=== PATIENT | female | born 1955 | race Caucasian/White ===

== ENCOUNTER 2016-11-18 15:26 | Emergency (ER) | payer BC, OTHER ==
[~2016-11-18] VITALS: Ht 160 cm; Wt 89.8 kg
[~2016-11-18 15:26] MED LIST: ADVI200C5 PO; ATOR20TA15 PO; DULO1CAP3 PO; ESZO1TAB PO; GABA100C4 PO; HYDR50TA15 PO; LANTINJ SQ; LORA-373 PO; LOSA100T2 PO; METF1000 PO; MULT1TAB84 PO; NEBI20 PO; SPIR50TA PO
[2016-11-18 15:27] VITALS: BP 135/86; PULSE 77; RESP 18; TEMP 97.7; O2SAT 99
[2016-11-18] MEDS ORDERED: KETOROLAC TROMETHAMINE 30 MG/ML (IVP) VIAL IV PUSH ONE (16:15)
[2016-11-18] MEDS ORDERED: ONDANSETRON HCL 4 MG/2 ML VIAL IV PUSH ONE (16:15)
--- NOTE | 2016-11-18 16:19 | PD ---
HPI Chief Complaint: Flank/Kidney Pain Time Seen by Provider: 16:07 Travel History International Travel<30 days: No Contact w/Intl Traveler<30days: No Traveled to known affect area: No History of Present Illness HPI 61yo F with PMH of fibromyalgia, nephrolithiasis, HTN, DM presents to the ED with c/o left flank pain that radiates toward the left groin for 3 days. States movement makes it better and sitting still makes it worst. Feels like her kidney stone pain. +Nausea. +Dysuria. Denies any fever, chest pain, sob, vomiting, hematuria. PFSH Past Medical History Hx Anticoagulant Therapy: Yes (ASPIRIN 325MG DAILY) Cardiac Catheterization: Yes Coronary Artery Disease: Yes Diabetes: Yes Patient Takes Glucophage: No Hypertension: Yes Myocardial Infarction: Yes Tetanus Vaccination: > 5 Years Influenza Vaccination: Yes ?: Not Past Surgical History Appendectomy: Yes Section: Yes (x2) Cholecystectomy: Yes Social History Alcohol Use: No Tobacco Use: No Substance Use: No Allergies-Medications (Allergen,Severity, Reaction): Coded Allergies: No Known Allergies (Unverified , 11/18/16) Reported Meds & Prescriptions Reported Meds & Active Scripts Active Ibuprofen 600 Mg Tab 600 Mg PO Q6H PRN Bactrim DS (Sulfamethoxazole-Trimethoprim) 800-160 Mg Tab 1 Tab PO BID Gabapentin 100 Mg Cap 100 Mg PO TID Bystolic (Nebivolol) 20 Mg Tab 20 Mg PO DAILY Hydralazine (Hydralazine HCl) 50 Mg Tab 50 Mg PO TID Take with a meal Losartan-Hydrochlorothiazide 100-25 Mg Tab 1 Tab PO DAILY Duloxetine DR (Duloxetine HCl) 60 Mg Capdr 60 Mg PO DAILY Spironolactone 50 Mg Tab 50 Mg PO DAILY Metformin (Metformin HCl) 1,000 Mg Tab 1,000 Mg PO BIDPC With meals Lantus Solostar Pen Inj (Insulin Glargine) 300 Unit/3 Ml Pen 5 Units SQ DAILY Lunesta (Eszopiclone) 2 Mg Tab 2 Mg PO HS PRN Atorvastatin (Atorvastatin Calcium) 20 Mg Tab 20 Mg PO HS Reported Multivitamin Adults (Multiple Vitamins W/ Minerals) 1 Tab 1 Tab PO DAILY Advil (Ibuprofen) 200 Mg Cap 200 Mg PO Q4H PRN Lorazepam 0.5 Mg Tab 0.5 Mg PO Q8H PRN Review of Systems Except as stated in HPI: all other systems reviewed are Neg Physical Exam Narrative GENERAL: 61yo F not in distress. SKIN: Warm and dry. HEAD: Atraumatic. Normocephalic. EYES: Pupils equal and round. No scleral icterus. No injection or drainage. ENT: No nasal bleeding or discharge. Mucous membranes pink and moist. NECK: Trachea midline. No JVD. CARDIOVASCULAR: Regular rate and rhythm. No murmur appreciated. RESPIRATORY: No accessory muscle use. Clear to auscultation. Breath sounds equal bilaterally. GASTROINTESTINAL: Abdomen soft, non-tender, nondistended. No rebound tenderness or guarding. BACK: No midline ttp thoracic or lumbar spine. +Left paraspinal ttp L3-L5. No CVA tenderness bilaterally. MUSCULOSKELETAL: No obvious deformities. No clubbing. No cyanosis. No edema. NEUROLOGICAL: Awake and alert. No obvious cranial nerve deficits. Motor grossly within normal limits. Normal speech. PSYCHIATRIC: Appropriate mood and affect; insight and judgment normal. Data Data Last Documented VS Vital Signs Date Time Temp Pulse Resp B/P Pulse Ox O2 Delivery O2 Flow Rate FiO2 11/18/16 17:20 16 11/18/16 17:09 76 114/74 93 Room Air 11/18/16 15:27 97.7 Orders Urinalysis - C+S If Indicated (11/18/16 16:01) Complete Blood Count With Diff (11/18/16 16:07) Comprehensive Metabolic Panel (11/18/16 16:07) Ct Abd/Pel W/O Iv Contrast (11/18/16 ) Ketorolac Inj (Toradol Inj) (11/18/16 16:15) Ondansetron Inj (Zofran Inj) (11/18/16 16:15) Urine Culture (11/18/16 16:45) Ceftriaxone Inj (Rocephin Inj) (11/18/16 18:00) Sodium Chlorid 0.9% 500 Ml Inj (Ns 500 M (11/18/16 18:00) Labs Laboratory Tests Test 11/18/16 11/18/16 16:15 16:45 White Blood Count 10.9 TH/MM3 Red Blood Count 4.82 MIL/MM3 Hemoglobin 14.1 GM/DL Hematocrit 42.7 % Mean Corpuscular Volume 88.4 FL Mean Corpuscular Hemoglobin 29.3 PG Mean Corpuscular Hemoglobin 33.1 % Concent Red Cell Distribution Width 13.2 % Platelet Count 365 TH/MM3 Mean Platelet Volume 7.3 FL Neutrophils (%) (Auto) 59.4 % Lymphocytes (%) (Auto) 33.2 % Monocytes (%) (Auto) 4.6 % Eosinophils (%) (Auto) 2.2 % Basophils (%) (Auto) 0.6 % Neutrophils # (Auto) 6.5 TH/MM3 Lymphocytes # (Auto) 3.6 TH/MM3 Monocytes # (Auto) 0.5 TH/MM3 Eosinophils # (Auto) 0.2 TH/MM3 Basophils # (Auto) 0.1 TH/MM3 CBC Comment DIFF FINAL Differential Comment Sodium Level 138 MEQ/L Potassium Level 4.3 MEQ/L Chloride Level 100 MEQ/L Carbon Dioxide Level 28.5 MEQ/L Anion Gap 10 MEQ/L Blood Urea Nitrogen 21 MG/DL Creatinine 1.00 MG/DL Estimat Glomerular Filtration 57 ML/MIN Rate Random Glucose 206 MG/DL Calcium Level 9.1 MG/DL Total Bilirubin 0.4 MG/DL Aspartate Amino Transf 17 U/L (AST/SGOT) Alanine Aminotransferase 28 U/L (ALT/SGPT) Alkaline Phosphatase 117 U/L Total Protein 7.3 GM/DL Albumin 3.7 GM/DL Urine Collection Type CLEAN CATCH Urine Color YELLOW Urine Turbidity CLEAR Urine pH 5.5 Urine Specific [place] 1.021 Urine Protein NEG mg/dL Urine Glucose (UA) NEG mg/dL Urine Ketones NEG mg/dL Urine Occult Blood NEG Urine Nitrite NEG Urine Bilirubin NEG Urine Leukocyte Esterase TRACE Urine RBC 0-3 /hpf Urine WBC 6-8 /hpf Urine WBC Clumps RARE Urine Squamous Epithelial 0-5 /hpf Cells Urine Bacteria FEW /hpf Microscopic Urinalysis Comment CULTURE INDICATED Urine Collection Time 1645 MDM Medical Decision Making Medical Screen Exam Complete: Yes Emergency Medical Condition: Yes Differential Diagnosis Nephrolithiasis vs. pyelonephritis vs. musculoskeletal pain Narrative Course 61yo F with left sided flank pain radiating to left groin for 3 days with dysuria. Will check UA, labs, CTa/p- and give zofran, toradol and IVF NS and reevaluate. Labs reviewed, no leukocytosis. BUN mildly increased at 21. IVF NS given. Glucose elevated at 206. UA showed few bacteria, WBC 6-8. Pt given ceftriaxone 1gm IV. CTa/p showed no acute abdominal or pelvic process. No renal stones. Diverticulosis without diverticulitis. Pt given toradol and zofran and feels better. Pt no longer nauseous and tolerating PO. Return precautions given. Diagnosis Primary Impression: UTI (urinary tract infection) Qualified Code: N39.0 - Urinary tract infection without hematuria, site unspecified Patient Instructions: General Instructions Departure Forms: Tests/Procedures Additional Instructions: Please follow up with your PMD in 3-7 days. Return to the ED if symptoms worsen. Med/Other Pt SpecificInfo: Prescription(s) given Scripts Ibuprofen 600 Mg [id number] Mg PO Q6H PRN (Pain/Inflammation) #20 TAB Ref 0 Prov:Ilana Woo DO 11/18/16 Sulfamethoxazole-Trimethoprim (Bactrim DS)800-160 Mg Tab1 Tab PO BID #14 TAB Ref 0 Prov:Ilana Woo DO 11/18/16 Disposition: 01 DISCHARGE HOME Condition: Stable Ilana Woo DO Nov 18, 2016 16:19
[2016-11-18 16:25] LABS: AUTOMATED NEUTROPHIL # 6.5 TH/MM3 (1.8-7.7); BASOPHIL # 0.1 TH/MM3 (0-0.2); BASOPHIL % 0.6 % (0.0-2.0); EOSINOPHIL # 0.2 TH/MM3 (0-0.4); EOSINOPHIL % 2.2 % (0.0-4.0); HEMATOCRIT 42.7 % (35.0-46.0); HEMO FLAGS DIFF FINAL; LYMPH % 33.2 % (9.0-44.0); LYMPHOCYTE # 3.6 TH/MM3 (1.0-4.8); MEAN CELL VOLUME 88.4 FL (80.0-100.0); MEAN CORPUSCULAR HEMOGLOBIN 29.3 PG (27.0-34.0); MEAN CORPUSCULAR HGB CONC 33.1 % (32.0-36.0); MONO % 4.6 % (0.0-8.0); NEUT % 59.4 % (16.0-70.0); PLATELET COUNT 365 TH/MM3 (150-450); RED BLOOD COUNT 4.82 MIL/MM3 (4.00-5.30); RED CELL DISTRIBUTION WIDTH 13.2 % (11.6-17.2); WHITE BLOOD COUNT 10.9 TH/MM3 (4.0-11.0)
[2016-11-18 16:43] LABS: CHLORIDE 100 MEQ/L (98-107); POTASSIUM 4.3 MEQ/L (3.5-5.1); SODIUM (NA) 138 MEQ/L (136-145)
[2016-11-18 16:47] LABS: ANION GAP 10 MEQ/L (5-15); BICARBONATE 28.5 MEQ/L (21.0-32.0); BLOOD UREA NITROGEN 21 MG/DL (7-18)
[2016-11-18 16:50] LABS: ALT (GPT) 28 U/L (10-53); AST (GOT) 17 U/L (15-37); GLOMERULAR FILTRATION RATE 57 ML/MIN (>89)
[2016-11-18 16:51] LABS: TOTAL BILIRUBIN ADULT 0.4 MG/DL (0.2-1.0)
[2016-11-18 16:53] LABS: ALKALINE PHOSPHATASE 117 U/L (45-117)
[2016-11-18 17:03] LABS: BLOOD, URINE NEG (NEG); GLUCOSE,URINE NEG (NEG); KETONE, URINE NEG (NEG); NITRITE,URINE NEG (NEG); PH, URINE 5.5 (5.0-8.5)
[2016-11-18 17:09] VITALS: BP 114/74; PULSE 76; RESP 16; O2SAT 93
[2016-11-18 17:15] LABS: METHOD OF COLLECTION CLEAN CATCH; URINE COLOR YELLOW (YELLW/STRAW)
[2016-11-18 17:16] LABS: BACTERIA, URINE FEW /hpf; COMMENT (UR) CULTURE INDICATED; CULTURE IF INDICATED CULTURE INDICATED; RBC, URINE 0-3 /hpf (0-3); SQUAMOUS EPITHELIAL CELL URINE 0-5 /hpf (0-5)
[2016-11-18 17:20] VITALS: RESP 16
[2016-11-18] MEDS ORDERED: cefTRIAXone INJ 1,000 MG in SODIUM CHLORIDE 0.9% INJ 100 ML IV ONE (18:00)
[2016-11-18] MEDS ORDERED: SODIUM CHLORID 0.9% 500 ML INJ 500 ML IV ONE (18:00)
--- NOTE | 2016-11-18 18:06 | RADHPO ---
EXAM DATE/TIME: 11/18/2016 16:56 [facility] COMPARISON: No previous studies available for comparison. INDICATIONS : Left flank pain for three days. ORAL CONTRAST: No oral contrast ingested. RADIATION DOSE: 26.48 CTDIvol (mGy) MEDICAL HISTORY : Myocardial infarction. Hypertension. Renal calculi.Coronary artery disease. Diabetes. SURGICAL HISTORY : Appendectomy. Cholecystectomy. ENCOUNTER: Initial ACUITY: 3 days PAIN SCALE: 6/10 LOCATION: Left flank TECHNIQUE: Volumetric scanning of the abdomen and pelvis was performed. Using automated exposure control and ad justment of the mA and/or kV according to patient size, radiation dose was kept as low as reasonably achievable to obtain optimal diagnostic quality images. FINDINGS: Examination of the lung bases demonstrates no abnormality. No pleural fluid is identified. No pulmona ry nodules are present. The liver and spleen are normal in size and no focal defects are identified. The gallbladder is absent. The pancreas demonstrates normal contour without evidence of mass or ducta l dilatation. The adrenal glands and kidneys appear normal bilaterally. No hydronephrosis or mass les ions are identified. No abnormally enlarged lymph nodes are identified. Examination of the pelvis demonstrates no evidence of free fluid or pelvic mass. No abnormally enlarg ed inguinal or retroperitoneal lymph nodes are present. The bladder is unremarkable. There is diverti culosis without evidence of diverticulitis. CONCLUSION: 1. No evidence of acute abdominal or pelvic process. No masses are identified. No renal stones are id entified. 2. Diverticulosis without evidence of diverticulitis. Dylan Condon MD on November 18, 2016 at 18:00 Board Certified Radiologist. This report was verified electronically.
[2016-11-18] MEDS ORDERED: IBUP-232 PO (18:20)
[2016-11-18] MEDS ORDERED: BACT800T5 PO (18:20)
[2016-11-23] MEDS ORDERED: LANTINJ SQ (10:24)
[2016-11-23] MEDS ORDERED: GLIP5TAB8 PO (10:25)
[2016-12-08] MEDS ORDERED: GABA100C4 PO (11:04)
[2016-12-16] MEDS ORDERED: LANTINJ SQ (16:32)
[2016-12-28] MEDS ORDERED: CELE200C PO (15:09)
[2016-12-30] MEDS ORDERED: ATOR20TA15 PO (15:55)
[2016-12-30] MEDS ORDERED: ESZO1TAB PO (15:55)
[2017-01-13] MEDS ORDERED: GABA600T PO (10:31)
[2017-01-13] MEDS ORDERED: LANTINJ SQ (12:16)
[2017-01-26] MEDS ORDERED: LANTINJ SQ (13:30)
[2017-03-29] MEDS ORDERED: ZOFR4TAB PO (14:05)
[2017-03-29] MEDS ORDERED: GLIP5TAB8 PO (14:22)
[2017-04-03] MEDS ORDERED: LOSA100T2 PO (16:17)
[2017-04-03] MEDS ORDERED: METF1000 PO (16:17)
[2017-04-03] MEDS ORDERED: DULO1CAP3 PO (16:17)
[2017-04-03] MEDS ORDERED: HYDR-3799 PO (16:20)
== END 2016-11-18 19:20 | disposition home or self-care (01) ==
LOC: PHED 15:26
DX: N39.0 Urinary tract infection, site not specified (principal); I10 Essential (primary) hypertension; E11.9 Type 2 diabetes mellitus without complications; N20.0 Calculus of kidney; M79.7 Fibromyalgia
CPT/HCPCS: 74176; 80053; 81001; 85025; 87086; 96365; 96375; 99284; J0696; J1885; J2405; J7040